=== PATIENT | male | born 1960 | race African-American/Black ===

== ENCOUNTER 2016-03-18 15:08 | Emergency (ER) | payer MEDICARE, MEDICAID ==
[~2016-03-18] VITALS: Ht 182.9 cm; Wt 81.8 kg
[~2016-03-18 15:08] MED LIST: AMLO-512 PO; FLUO-191 PO; FLUO20CA30 PO; LISI-662 PO; LITH300C3 PO; METF500T4 PO; MODA100 PO; OMEP20 PO; QUET200T PO; QUET200T29 PO
[2016-03-18] MEDS ORDERED: DiphenhydrAMINE HCL 50 MG/ML VIAL IVP ONE (16:00)
[2016-03-18] MEDS ORDERED: FAMOTIDINE 10 MG/ML 2 ML VIAL IVP ONE (16:00)
[2016-03-18] MEDS ORDERED: MethylPREDNISolone SOD SUCC 125 MG/2 ML VIAL IVP ONE (16:00)
[2016-03-18 16:24] LABS: BASOPHILS # (AUTO) 0.09 K/uL (0.00-0.20); BASOPHILS % (AUTO) 1.3 % (0.0-2.0); EOSINOPHILS # (AUTO) 0.13 K/uL (0.00-0.70); EOSINOPHILS % (AUTO) 1.87 % (1.0-6.0); HEMATOCRIT 42.4 % (41-53); HEMOGLOBIN 13.6 g/dL (13.5-17.5); LYMPHOCYTES # (AUTO) 2.2 K/uL (1.0-4.8); LYMPHOCYTES % (AUTO) 30.7 % (22.0-44.0); MEAN CORPUSCULAR HEMOGLOBIN 26.9 pg (26.0-34.0); MEAN CORPUSCULAR VOLUME 84 fL (80-100); MONOCYTES # (AUTO) 0.8 K/uL (0.1-1.0); MONOCYTES % (AUTO) 10.8 % (2.0-9.0); NEUTROPHILS # (AUTO) 3.9 K/uL (1.8-7.7); NEUTROPHILS % (AUTO) 55.4 % (40.0-70.0); RED BLOOD CELL COUNT(AUTO) 5.06 MIL/uL (4.50-5.90)
[2016-03-18 16:38] LABS: ANION GAP 8 mmol/L (8-16); CALCIUM, TOTAL 9.1 mg/dL (8.8-10.5); CARBON DIOXIDE 29 mmol/L (22-29); CHLORIDE 102 mmol/L (98-107); CREATININE 1.26 mg/dL (0.60-1.30); GLOMERULAR FILTR. RATE CALC > 60 mL/min (>60); SODIUM SERUM 139 mmol/L (136-145); UREA NITROGEN, BLOOD 16 mg/dL (7-18)
[2016-03-18 16:43] LABS: ALBUMIN 3.4 g/dL (3.4-5.0)
[2016-03-18 16:50] LABS: GLUCOSE,POINT OF CARE 97 MG/DL (70-110)
[2016-03-18 16:59] LABS: ALANINE AMINOTRANSFERASE 16 U/L (12-78); ASPARTATE AMINOTRANSFERASE 14 U/L (15-37); BILIRUBIN,TOTAL 0.1 mg/dL (0.1-1.0); TOTAL PROTEIN, SERUM 7.8 g/dL (6.4-8.2)
[2016-03-18 17:03] LABS: PLATELET COUNT (AUTO) 258 K/uL (150-450)
[2016-03-18 17:20] LABS: LITHIUM < 0.20 mmol/L (0.60-1.20)
[2016-03-18 21:00] VITALS: BP 135/87
== END 2016-03-18 23:25 | disposition home or self-care (01) ==
LOC: EMS 15:15
DX: T78.3XXA Angioneurotic edema, initial encounter (principal); E11.9 Type 2 diabetes mellitus without complications; I10 Essential (primary) hypertension
CPT/HCPCS: 36415; 36430; 80053; 80178; 82962; 85025; 86900; 86901; 86927; 96374; 96375; 99285; J1200; J2930; J3490; P9017

== ENCOUNTER 2016-03-29 14:57 | Emergency (ER) | payer MEDICARE, MEDICAID ==
[~2016-03-29] VITALS: Ht 182.9 cm; Wt 81.5 kg
[2016-03-29 15:51] LABS: GLUCOSE,POINT OF CARE 100 MG/DL (70-110)
[2016-03-29 21:50] VITALS: BP 141/94
== END 2016-03-29 22:41 | disposition home or self-care (01) ==
LOC: EMS 14:59
DX: L02.02 Furuncle of face (principal); E11.9 Type 2 diabetes mellitus without complications; I10 Essential (primary) hypertension
CPT/HCPCS: 82962; 99283

== ENCOUNTER 2016-05-06 21:30 | Inpatient (IN) | payer MEDICARE, MEDICAID ==
[~2016-05-06] VITALS: Ht 182.9 cm; Wt 84.0 kg
[~2016-05-06 21:30] MED LIST changes: -LISI-662 PO
[2016-05-06] MEDS ORDERED: LORazepam 2 MG TABLET PO PRN (22:15)
[2016-05-06] MEDS ORDERED: HALOPERIDOL 5 MG TABLET PO PRN (22:15)
[2016-05-06] MEDS ORDERED: ZOLPIDEM TARTRATE 10 MG TABLET PO PRN (22:15)
[2016-05-06 22:41] VITALS: BP 139/88
[2016-05-06] MEDS ORDERED: DEXTROSE 50%-WATER 25 GM/50 ML SYRINGE IVP PRN (22:45)
[2016-05-07 05:27] LABS: GLUCOSE,POINT OF CARE 86 MG/DL (70-110)
[2016-05-07] MEDS: MetFORMIN HCL 500 MG TABLET PO SCH ×2 (07:04→17:48)
[2016-05-07 07:26] VITALS: BP 149/90
[2016-05-07] MEDS ORDERED: MAG HYDROX/AL HYDROX/SIMETH ES 30 ML SUSPENSION UDCUP PO PRN (08:00)
[2016-05-07] MEDS ORDERED: BENZOCAINE/MENTHOL LOZENGE [8 LOZENGES/PACKET] MM PRN (08:00)
[2016-05-07] MEDS ORDERED: ALBUTEROL SULFATE HFA 90 MCG/PUFF 8 GM INHALER IH PRN (08:00)
[2016-05-07] MEDS ORDERED: CloNIDine HCL 0.1 MG TABLET PO PRN (08:00)
[2016-05-07] MEDS ORDERED: PETROLATUM,WHITE 71 GM JELLY TP PRN (08:00)
[2016-05-07] MEDS ORDERED: MAGNESIUM HYDROXIDE SUSPENSION 30 ML UDCUP PO PRN (08:00)
[2016-05-07] MEDS ORDERED: LOPERAMIDE HCL 2 MG CAPSULE PO PRN (08:00)
[2016-05-07] MEDS ORDERED: IBUPROFEN 600 MG TABLET PO PRN (08:00)
[2016-05-07] MEDS ORDERED: BACITRACIN 28.4 GM OINTMENT TP PRN (08:00)
[2016-05-07] MEDS ORDERED: ACETAMINOPHEN 325 MG TABLET PO PRN (08:00)
[2016-05-07 08:45] VITALS: BP 143/90
[2016-05-07] MEDS: AmLODIPine BESYLATE 10 MG TABLET PO SCH (09:01)
[2016-05-07] MEDS: OMEPRAZOLE 20 MG CAPSULE PO SCH (09:01)
[2016-05-07] MEDS: ASPIRIN 81 MG EC TABLET PO SCH (09:01)
[2016-05-07] MEDS: LISINOPRIL 20 MG TABLET PO SCH ×2 (09:01→16:35)
[2016-05-07 16:47] LABS: GLUCOSE,POINT OF CARE 95 MG/DL (70-110)
[2016-05-07 19:02] VITALS: BP 126/71
[2016-05-08 05:27] LABS: GLUCOSE,POINT OF CARE 82 MG/DL (70-110)
[2016-05-08] MEDS: MetFORMIN HCL 500 MG TABLET PO SCH ×2 (07:34→16:53)
[2016-05-08 08:00] VITALS: BP 167/91
[2016-05-08] MEDS: AmLODIPine BESYLATE 10 MG TABLET PO SCH (08:34)
[2016-05-08] MEDS: LISINOPRIL 20 MG TABLET PO SCH ×2 (08:34→16:53)
[2016-05-08] MEDS: ASPIRIN 81 MG EC TABLET PO SCH (08:34)
[2016-05-08] MEDS: OMEPRAZOLE 20 MG CAPSULE PO SCH (08:34)
[2016-05-08 16:15] VITALS: BP 144/72
[2016-05-09 05:32] LABS: GLUCOSE,POINT OF CARE 99 MG/DL (70-110)
[2016-05-09] MEDS: MetFORMIN HCL 500 MG TABLET PO SCH ×2 (06:32→16:56)
[2016-05-09 08:00] VITALS: BP 152/88
[2016-05-09] MEDS: LISINOPRIL 20 MG TABLET PO SCH ×2 (08:46→16:56)
[2016-05-09] MEDS: ASPIRIN 81 MG EC TABLET PO SCH (08:46)
[2016-05-09] MEDS: OMEPRAZOLE 20 MG CAPSULE PO SCH (08:46)
[2016-05-09] MEDS: AmLODIPine BESYLATE 10 MG TABLET PO SCH (08:46)
[2016-05-09] MEDS ORDERED: GuaiFENesin/D-METHORPHAN [SUGAR-FREE] 200-20MG/10 ML SYRUP UDCUP PO PRN (10:15)
[2016-05-09] MEDS ORDERED: QUEtiapine FUMARATE 100 MG TABLET PO PRN (10:15)
[2016-05-09] MEDS ORDERED: HydrOXYzine PAMOATE 50 MG CAPSULE PO PRN (10:15)
[2016-05-09] MEDS ORDERED: LOPERAMIDE HCL 2 MG CAPSULE PO PRN (10:15)
[2016-05-09 16:53] VITALS: BP 148/79
[2016-05-09] MEDS: THIAMINE HCL 100 MG TABLET PO SCH (16:56)
[2016-05-09] MEDS ORDERED: GABAPENTIN 300 MG CAPSULE PO PRN (17:15)
[2016-05-09] MEDS: LITHIUM CARBONATE 300 MG CAPSULE PO SCH (22:08)
[2016-05-09] MEDS: QUEtiapine FUMARATE 200 MG TABLET PO SCH (22:08)
[2016-05-10 06:12] LABS: GLUCOSE,POINT OF CARE 80 MG/DL (70-110)
[2016-05-10] MEDS: MetFORMIN HCL 500 MG TABLET PO SCH ×2 (06:52→17:31)
[2016-05-10] MEDS: THIAMINE HCL 100 MG TABLET PO SCH ×2 (08:16→17:31)
[2016-05-10] MEDS: LISINOPRIL 20 MG TABLET PO SCH ×2 (08:16→17:31)
[2016-05-10] MEDS: FOLIC ACID 1 MG TABLET PO SCH (08:16)
[2016-05-10] MEDS: OMEPRAZOLE 20 MG CAPSULE PO SCH (08:16)
[2016-05-10] MEDS: AmLODIPine BESYLATE 10 MG TABLET PO SCH (08:17)
[2016-05-10] MEDS: MULTIVITAMINS WITH MINERALS, THERAPEUTIC TABLET PO SCH (08:17)
[2016-05-10] MEDS: ASPIRIN 81 MG EC TABLET PO SCH (08:17)
[2016-05-10] MEDS: FLUoxetine HCL 20 MG CAPSULE PO SCH (08:17)
[2016-05-10 09:05] VITALS: BP 109/60
[2016-05-10 16:47] VITALS: BP 119/65
[2016-05-10 22:04] VITALS: BP 124/69
[2016-05-10] MEDS: LITHIUM CARBONATE 300 MG CAPSULE PO SCH (22:19)
[2016-05-10] MEDS: QUEtiapine FUMARATE 200 MG TABLET PO SCH (22:19)
[2016-05-10] MEDS: PRAZOSIN HCL 1 MG CAPSULE PO SCH (22:19)
[2016-05-11 05:26] LABS: GLUCOSE,POINT OF CARE 114 MG/DL (70-110)
[2016-05-11] MEDS: MetFORMIN HCL 500 MG TABLET PO SCH ×2 (07:01→17:30)
[2016-05-11 08:30] VITALS: BP 142/76
[2016-05-11] MEDS: FOLIC ACID 1 MG TABLET PO SCH (09:16)
[2016-05-11] MEDS: ASPIRIN 81 MG EC TABLET PO SCH (09:16)
[2016-05-11] MEDS: LISINOPRIL 20 MG TABLET PO SCH ×2 (09:16→17:30)
[2016-05-11] MEDS: AmLODIPine BESYLATE 10 MG TABLET PO SCH (09:16)
[2016-05-11] MEDS: FLUoxetine HCL 20 MG CAPSULE PO SCH (09:16)
[2016-05-11] MEDS: THIAMINE HCL 100 MG TABLET PO SCH ×2 (09:16→17:30)
[2016-05-11] MEDS: OMEPRAZOLE 20 MG CAPSULE PO SCH (09:16)
[2016-05-11] MEDS: MULTIVITAMINS WITH MINERALS, THERAPEUTIC TABLET PO SCH (09:16)
[2016-05-11 17:42] LABS: GLUCOSE,POINT OF CARE 88 MG/DL (70-110)
[2016-05-11 18:02] VITALS: BP 140/83
[2016-05-11] MEDS: QUEtiapine FUMARATE 200 MG TABLET PO SCH (21:15)
[2016-05-11] MEDS: PRAZOSIN HCL 1 MG CAPSULE PO SCH (21:15)
[2016-05-11] MEDS: LITHIUM CARBONATE 300 MG CAPSULE PO SCH (21:15)
[2016-05-12 05:07] LABS: GLUCOSE,POINT OF CARE 84 MG/DL (70-110)
[2016-05-12] MEDS: MetFORMIN HCL 500 MG TABLET PO SCH ×2 (06:34→16:53)
[2016-05-12] MEDS: NALTREXONE HCL 50 MG TABLET PO SCH (08:00)
[2016-05-12] MEDS: MULTIVITAMINS WITH MINERALS, THERAPEUTIC TABLET PO SCH (08:00)
[2016-05-12] MEDS: FLUoxetine HCL 20 MG CAPSULE PO SCH (08:00)
[2016-05-12] MEDS: THIAMINE HCL 100 MG TABLET PO SCH ×2 (08:01→16:14)
[2016-05-12] MEDS: FOLIC ACID 1 MG TABLET PO SCH (08:01)
[2016-05-12] MEDS: AmLODIPine BESYLATE 10 MG TABLET PO SCH (08:01)
[2016-05-12] MEDS: LISINOPRIL 20 MG TABLET PO SCH ×2 (08:01→16:14)
[2016-05-12] MEDS: ASPIRIN 81 MG EC TABLET PO SCH (08:01)
[2016-05-12] MEDS: OMEPRAZOLE 20 MG CAPSULE PO SCH (08:01)
[2016-05-12 08:13] VITALS: BP 129/68
[2016-05-12 16:46] VITALS: BP 136/77
[2016-05-12] MEDS ORDERED: DICLOFENAC SODIUM 1% 100 GM GEL [2GM] TP PRN (18:15)
[2016-05-12] MEDS ORDERED: IBUPROFEN 400 MG TABLET PO PRN (18:15)
[2016-05-12] MEDS: QUEtiapine FUMARATE 200 MG TABLET PO SCH (21:28)
[2016-05-12] MEDS: LITHIUM CARBONATE 300 MG CAPSULE PO SCH (21:28)
[2016-05-12] MEDS: PRAZOSIN HCL 1 MG CAPSULE PO SCH (21:28)
[2016-05-13 05:38] LABS: GLUCOSE,POINT OF CARE 104 MG/DL (70-110)
[2016-05-13 08:10] VITALS: BP 139/83
[2016-05-13] MEDS ORDERED: MODAFINIL 100 MG TABLET PO SCH (09:00)
[2016-05-13] MEDS: MetFORMIN HCL 500 MG TABLET PO SCH ×2 (09:37→16:07)
[2016-05-13] MEDS: MULTIVITAMINS WITH MINERALS, THERAPEUTIC TABLET PO SCH (09:59)
[2016-05-13] MEDS: AmLODIPine BESYLATE 10 MG TABLET PO SCH (09:59)
[2016-05-13] MEDS: OMEPRAZOLE 20 MG CAPSULE PO SCH (09:59)
[2016-05-13] MEDS: FOLIC ACID 1 MG TABLET PO SCH (10:00)
[2016-05-13] MEDS: LISINOPRIL 20 MG TABLET PO SCH ×2 (10:00→16:07)
[2016-05-13] MEDS: ASPIRIN 81 MG EC TABLET PO SCH (10:00)
[2016-05-13] MEDS: THIAMINE HCL 100 MG TABLET PO SCH ×2 (10:01→16:08)
[2016-05-13] MEDS: NALTREXONE HCL 50 MG TABLET PO SCH (10:01)
[2016-05-13] MEDS: FLUoxetine HCL 20 MG CAPSULE PO SCH (10:01)
[2016-05-13 16:47] LABS: GLUCOSE,POINT OF CARE 111 MG/DL (70-110)
[2016-05-13 17:09] VITALS: BP 129/74
[2016-05-13] MEDS: QUEtiapine FUMARATE 200 MG TABLET PO SCH (21:22)
[2016-05-13] MEDS: LITHIUM CARBONATE 300 MG CAPSULE PO SCH (21:22)
[2016-05-13] MEDS: PRAZOSIN HCL 1 MG CAPSULE PO SCH (21:22)
[2016-05-14 05:42] LABS: GLUCOSE,POINT OF CARE 80 MG/DL (70-110)
[2016-05-14] MEDS: MetFORMIN HCL 500 MG TABLET PO SCH ×2 (06:59→17:21)
[2016-05-14] MEDS: INSULIN ASPART 100 UNITS/ML SQ PRN (07:00)
[2016-05-14 08:00] VITALS: BP 149/87
[2016-05-14] MEDS: OMEPRAZOLE 20 MG CAPSULE PO SCH (08:44)
[2016-05-14] MEDS: AmLODIPine BESYLATE 10 MG TABLET PO SCH (08:44)
[2016-05-14] MEDS: ASPIRIN 81 MG EC TABLET PO SCH (08:44)
[2016-05-14] MEDS: FOLIC ACID 1 MG TABLET PO SCH (08:44)
[2016-05-14] MEDS: MULTIVITAMINS WITH MINERALS, THERAPEUTIC TABLET PO SCH (08:45)
[2016-05-14] MEDS: LISINOPRIL 20 MG TABLET PO SCH ×2 (08:45→17:21)
[2016-05-14] MEDS: THIAMINE HCL 100 MG TABLET PO SCH ×2 (08:45→17:21)
[2016-05-14] MEDS: NALTREXONE HCL 50 MG TABLET PO SCH (08:45)
[2016-05-14] MEDS: FLUoxetine HCL 20 MG CAPSULE PO SCH (08:45)
[2016-05-14] MEDS: MODAFINIL 100 MG TABLET PO SCH (08:45)
[2016-05-14 18:06] VITALS: BP 145/87
[2016-05-14] MEDS: LITHIUM CARBONATE 300 MG CAPSULE PO SCH (20:32)
[2016-05-14] MEDS: QUEtiapine FUMARATE 200 MG TABLET PO SCH (20:32)
[2016-05-14] MEDS: PRAZOSIN HCL 1 MG CAPSULE PO SCH (20:32)
[2016-05-15 05:12] LABS: GLUCOSE,POINT OF CARE 79 MG/DL (70-110)
[2016-05-15] MEDS: MetFORMIN HCL 500 MG TABLET PO SCH ×2 (06:37→17:08)
[2016-05-15 08:01] VITALS: BP 155/81
[2016-05-15] MEDS: MODAFINIL 100 MG TABLET PO SCH (08:14)
[2016-05-15] MEDS: ASPIRIN 81 MG EC TABLET PO SCH (08:14)
[2016-05-15] MEDS: AmLODIPine BESYLATE 10 MG TABLET PO SCH (08:14)
[2016-05-15] MEDS: OMEPRAZOLE 20 MG CAPSULE PO SCH (08:14)
[2016-05-15] MEDS: FOLIC ACID 1 MG TABLET PO SCH (08:14)
[2016-05-15] MEDS: NALTREXONE HCL 50 MG TABLET PO SCH (08:15)
[2016-05-15] MEDS: LISINOPRIL 20 MG TABLET PO SCH ×2 (08:15→17:08)
[2016-05-15] MEDS: FLUoxetine HCL 20 MG CAPSULE PO SCH (08:15)
[2016-05-15] MEDS: MULTIVITAMINS WITH MINERALS, THERAPEUTIC TABLET PO SCH (08:15)
[2016-05-15] MEDS: THIAMINE HCL 100 MG TABLET PO SCH ×2 (08:15→17:08)
[2016-05-15 17:00] VITALS: BP 145/84
[2016-05-15] MEDS: INSULIN ASPART 100 UNITS/ML SQ PRN (21:24)
[2016-05-15] MEDS: LITHIUM CARBONATE 300 MG CAPSULE PO SCH (21:51)
[2016-05-15] MEDS: QUEtiapine FUMARATE 200 MG TABLET PO SCH (21:51)
[2016-05-15] MEDS: PRAZOSIN HCL 1 MG CAPSULE PO SCH (21:51)
[2016-05-16 05:22] LABS: GLUCOSE,POINT OF CARE 79 MG/DL (70-110)
[2016-05-16] MEDS: MetFORMIN HCL 500 MG TABLET PO SCH ×2 (06:34→17:36)
[2016-05-16 08:02] VITALS: BP 139/91
[2016-05-16] MEDS: MULTIVITAMINS WITH MINERALS, THERAPEUTIC TABLET PO SCH (09:25)
[2016-05-16] MEDS: AmLODIPine BESYLATE 10 MG TABLET PO SCH (09:25)
[2016-05-16] MEDS: MODAFINIL 100 MG TABLET PO SCH (09:25)
[2016-05-16] MEDS: FLUoxetine HCL 20 MG CAPSULE PO SCH (09:26)
[2016-05-16] MEDS: FOLIC ACID 1 MG TABLET PO SCH (09:26)
[2016-05-16] MEDS: LISINOPRIL 20 MG TABLET PO SCH ×2 (09:26→16:09)
[2016-05-16] MEDS: PRAZOSIN HCL 1 MG CAPSULE PO SCH (09:27)
[2016-05-16] MEDS: ASPIRIN 81 MG EC TABLET PO SCH (09:27)
[2016-05-16] MEDS: THIAMINE HCL 100 MG TABLET PO SCH ×2 (09:27→16:09)
[2016-05-16] MEDS: OMEPRAZOLE 20 MG CAPSULE PO SCH (09:29)
[2016-05-16] MEDS: NALTREXONE HCL 50 MG TABLET PO SCH (09:30)
[2016-05-16 16:41] VITALS: BP 151/89
[2016-05-16] MEDS: QUEtiapine FUMARATE 200 MG TABLET PO SCH (21:42)
[2016-05-16] MEDS: LITHIUM CARBONATE 300 MG CAPSULE PO SCH (21:42)
[2016-05-17] MEDS: MetFORMIN HCL 500 MG TABLET PO SCH ×2 (06:32→16:30)
[2016-05-17 08:30] VITALS: BP 144/87
[2016-05-17] MEDS: AmLODIPine BESYLATE 10 MG TABLET PO SCH (09:22)
[2016-05-17] MEDS: OMEPRAZOLE 20 MG CAPSULE PO SCH (09:22)
[2016-05-17] MEDS: ASPIRIN 81 MG EC TABLET PO SCH (09:22)
[2016-05-17] MEDS: FOLIC ACID 1 MG TABLET PO SCH (09:22)
[2016-05-17] MEDS: NALTREXONE HCL 50 MG TABLET PO SCH (09:27)
[2016-05-17] MEDS: FLUoxetine HCL 20 MG CAPSULE PO SCH (09:27)
[2016-05-17] MEDS: THIAMINE HCL 100 MG TABLET PO SCH ×2 (09:28→16:30)
[2016-05-17] MEDS: MULTIVITAMINS WITH MINERALS, THERAPEUTIC TABLET PO SCH (09:28)
[2016-05-17] MEDS: LISINOPRIL 20 MG TABLET PO SCH ×2 (09:28→16:30)
[2016-05-17] MEDS: MODAFINIL 100 MG TABLET PO SCH (09:29)
[2016-05-17] MEDS: ONDANSETRON HCL 4 MG TABLET PO PRN ×2 (11:59→19:20)
[2016-05-17 16:30] VITALS: BP 143/84
[2016-05-17] MEDS: PRAZOSIN HCL 1 MG CAPSULE PO SCH (21:46)
[2016-05-17] MEDS: QUEtiapine FUMARATE 300 MG TABLET PO SCH (21:46)
[2016-05-17] MEDS: LITHIUM CARBONATE 300 MG CAPSULE PO SCH (21:46)
[2016-05-18 05:37] LABS: GLUCOSE,POINT OF CARE 101 MG/DL (70-110)
[2016-05-18] MEDS: MetFORMIN HCL 500 MG TABLET PO SCH ×2 (06:31→16:39)
[2016-05-18 08:01] VITALS: BP 146/76
[2016-05-18] MEDS: OMEPRAZOLE 20 MG CAPSULE PO SCH (08:53)
[2016-05-18] MEDS: FOLIC ACID 1 MG TABLET PO SCH (08:53)
[2016-05-18] MEDS: MODAFINIL 100 MG TABLET PO SCH (08:53)
[2016-05-18] MEDS: ASPIRIN 81 MG EC TABLET PO SCH (08:53)
[2016-05-18] MEDS: AmLODIPine BESYLATE 10 MG TABLET PO SCH (08:53)
[2016-05-18] MEDS: NALTREXONE HCL 50 MG TABLET PO SCH (08:54)
[2016-05-18] MEDS: MULTIVITAMINS WITH MINERALS, THERAPEUTIC TABLET PO SCH (08:54)
[2016-05-18] MEDS: THIAMINE HCL 100 MG TABLET PO SCH ×2 (08:54→16:39)
[2016-05-18] MEDS: LISINOPRIL 20 MG TABLET PO SCH ×2 (08:54→16:39)
[2016-05-18] MEDS: FLUoxetine HCL 20 MG CAPSULE PO SCH (08:54)
[2016-05-18 17:00] VITALS: BP 152/94
[2016-05-18] MEDS: PRAZOSIN HCL 1 MG CAPSULE PO SCH (22:00)
[2016-05-18] MEDS: LITHIUM CARBONATE 300 MG CAPSULE PO SCH (22:00)
[2016-05-18] MEDS: QUEtiapine FUMARATE 300 MG TABLET PO SCH (22:00)
[2016-05-18] MEDS: ONDANSETRON HCL 4 MG TABLET PO PRN (22:00)
[2016-05-19 05:32] LABS: GLUCOSE,POINT OF CARE 73 MG/DL (70-110)
[2016-05-19] MEDS: MetFORMIN HCL 500 MG TABLET PO SCH ×2 (07:01→18:32)
[2016-05-19 08:00] VITALS: BP 156/83
[2016-05-19] MEDS: NALTREXONE HCL 50 MG TABLET PO SCH (08:11)
[2016-05-19] MEDS: OMEPRAZOLE 20 MG CAPSULE PO SCH (08:11)
[2016-05-19] MEDS: THIAMINE HCL 100 MG TABLET PO SCH (08:11)
[2016-05-19] MEDS: LISINOPRIL 20 MG TABLET PO SCH ×2 (08:11→18:03)
[2016-05-19] MEDS: MULTIVITAMINS WITH MINERALS, THERAPEUTIC TABLET PO SCH (08:11)
[2016-05-19] MEDS: FLUoxetine HCL 20 MG CAPSULE PO SCH (08:11)
[2016-05-19] MEDS: MODAFINIL 100 MG TABLET PO SCH (08:11)
[2016-05-19] MEDS: ASPIRIN 81 MG EC TABLET PO SCH (08:12)
[2016-05-19] MEDS: AmLODIPine BESYLATE 10 MG TABLET PO SCH (08:12)
[2016-05-19] MEDS: FOLIC ACID 1 MG TABLET PO SCH (08:12)
[2016-05-19 16:34] VITALS: BP 157/86
[2016-05-19] MEDS ORDERED: MODA100 PO (16:56)
[2016-05-19] MEDS ORDERED: QUET300T18 PO (16:56)
[2016-05-19] MEDS ORDERED: FLUO-191 PO (16:56)
[2016-05-19] MEDS ORDERED: LITH300C3 PO (16:56)
[2016-05-19] MEDS ORDERED: NALT50 PO (16:56)
[2016-05-19] MEDS ORDERED: PRAZ1 PO (16:56)
[2016-05-19] MEDS: ONDANSETRON HCL 4 MG TABLET PO PRN (17:22)
[2016-05-19] MEDS: PRAZOSIN HCL 1 MG CAPSULE PO SCH (21:39)
[2016-05-19] MEDS: QUEtiapine FUMARATE 300 MG TABLET PO SCH (21:39)
[2016-05-19] MEDS: LITHIUM CARBONATE 300 MG CAPSULE PO SCH (21:39)
[2016-05-19 21:44] VITALS: BP 142/82
[2016-05-20 05:42] LABS: GLUCOSE,POINT OF CARE 77 MG/DL (70-110)
[2016-05-20] MEDS: MetFORMIN HCL 500 MG TABLET PO SCH (06:47)
[2016-05-20 09:00] VITALS: BP 160/80
[2016-05-20] MEDS ORDERED: ASPI81 PO (09:41)
[2016-05-20] MEDS ORDERED: LISI-662 PO (09:43)
[2016-05-20] MEDS ORDERED: MV-M1TAB2 PO (09:44)
[2016-05-20] MEDS: MODAFINIL 100 MG TABLET PO SCH (09:44)
[2016-05-20] MEDS: LISINOPRIL 20 MG TABLET PO SCH (09:45)
[2016-05-20] MEDS: OMEPRAZOLE 20 MG CAPSULE PO SCH (09:45)
[2016-05-20] MEDS: AmLODIPine BESYLATE 10 MG TABLET PO SCH (09:45)
[2016-05-20] MEDS: FLUoxetine HCL 20 MG CAPSULE PO SCH (09:46)
[2016-05-20] MEDS: ASPIRIN 81 MG EC TABLET PO SCH (09:46)
[2016-05-20] MEDS: NALTREXONE HCL 50 MG TABLET PO SCH (09:47)
[2016-05-20] MEDS: MULTIVITAMINS WITH MINERALS, THERAPEUTIC TABLET PO SCH (09:49)
[2016-05-20] MEDS: ONDANSETRON HCL 4 MG TABLET PO PRN (10:20)
== END 2016-05-20 12:00 | disposition home or self-care (01) | DRG 885 ==
LOC: 3EX 21:30
PROVIDERS: ADMIT Psychiatry & Neurology Psychiatry; ATTEND Psychiatry & Neurology Psychiatry
DX: F25.1 Schizoaffective disorder, depressive type (principal); I10 Essential (primary) hypertension; I25.10 Atherosclerotic heart disease of native coronary artery without angina pectoris; K21.9 Gastro-esophageal reflux disease without esophagitis; K59.00 Constipation, unspecified; M19.90 Unspecified osteoarthritis, unspecified site; G47.00 Insomnia, unspecified; F22 Delusional disorders; E11.40 Type 2 diabetes mellitus with diabetic neuropathy, unspecified; R26.9 Unspecified abnormalities of gait and mobility; M54.5 Low back pain; M79.641 Pain in right hand; Z79.4 Long term (current) use of insulin; Z79.82 Long term (current) use of aspirin
CPT/HCPCS: 82962; 87081; Q0162

== ENCOUNTER 2016-09-16 12:00 | Emergency (ER) | payer MEDICARE, MEDICAID ==
[~2016-09-16] VITALS: Ht 182.9 cm; Wt 86.3 kg
[~2016-09-16 12:00] MED LIST changes: +ASPI81 PO; -FLUO20CA30 PO; +LISI-662 PO; +MV-M1TAB2 PO; +NALT50 PO; +PRAZ1 PO; -QUET200T PO; -QUET200T29 PO; +QUET300T18 PO
[2016-09-16] MEDS ORDERED: GABA-531 PO (12:10)
[2016-09-16 12:13] LABS: GLUCOSE,POINT OF CARE 117 MG/DL (70-110)
[2016-09-16 13:34] LABS: BASOPHILS % (AUTO) 0.5 % (0.0-2.0); EOSINOPHILS % (AUTO) 2.2 % (1.0-6.0); HEMATOCRIT 42.5 % (41-53); LYMPHOCYTES # (AUTO) 1.7 K/uL (1.0-4.8); LYMPHOCYTES % (AUTO) 29.5 % (22.0-44.0); MEAN CORPUSCULAR HEMOGLOBIN 28.1 pg (26.0-34.0); MEAN CORPUSCULAR VOLUME 85 fL (80-100); MONOCYTES # (AUTO) 0.6 K/uL (0.1-1.0); MONOCYTES % (AUTO) 10.4 % (2.0-9.0); NEUTROPHILS # (AUTO) 3.4 K/uL (1.8-7.7); NEUTROPHILS % (AUTO) 57.4 % (40.0-70.0); PLATELET COUNT (AUTO) 128 K/uL (150-450); RED BLOOD CELL COUNT(AUTO) 4.99 MIL/uL (4.50-5.90); RED CELL DISTRIBUTION WIDTH 15.6 % (11.5-14.5); WHITE BLOOD COUNT (AUTO) 5.9 K/uL (4.5-11.0)
[2016-09-16] MEDS ORDERED: AmLODIPine BESYLATE 5 MG TABLET PO ONE (13:45)
[2016-09-16 13:54] LABS: ANION GAP 12 mmol/L (8-16); CALCIUM, TOTAL 9.9 mg/dL (8.8-10.5); CARBON DIOXIDE 26 mmol/L (22-29); CHLORIDE 105 mmol/L (98-107); CREATININE 1.05 mg/dL (0.60-1.30); GLOMERULAR FILTR. RATE CALC > 60 mL/min (>60); SODIUM SERUM 143 mmol/L (136-145); UREA NITROGEN, BLOOD 17 mg/dL (7-18)
[2016-09-16] MEDS ORDERED: ACETAMINOPHEN 500 MG TABLET ONE (13:55)
[2016-09-16 13:59] LABS: ALANINE AMINOTRANSFERASE 14 U/L (12-78); ALBUMIN 3.6 g/dL (3.4-5.0); ASPARTATE AMINOTRANSFERASE 16 U/L (15-37); BILIRUBIN,TOTAL 0.4 mg/dL (0.1-1.0); TOTAL PROTEIN, SERUM 7.7 g/dL (6.4-8.2)
[2016-09-16] MEDS ORDERED: ACETAMINOPHEN 500 MG TABLET PO ONE (14:00)
[2016-09-16 14:34] LABS: LITHIUM < 0.20 mmol/L (0.60-1.20)
[2016-09-16] MEDS ORDERED: CloNIDine HCL 0.1 MG TABLET PO ONE (16:00)
[2016-09-16 17:17] VITALS: BP 200/107
== END 2016-09-16 18:06 | disposition home or self-care (01) ==
LOC: EMS 12:03
DX: I10 Essential (primary) hypertension (principal); F32.9 Major depressive disorder, single episode, unspecified; E11.9 Type 2 diabetes mellitus without complications
CPT/HCPCS: 36415; 80053; 80178; 80307; 82962; 85025; 99284; G0480

== ENCOUNTER → 2016-12-19 | Outpatient (CLI) | payer MEDICARE, MEDICAID ==
[~2016-12-19] MED LIST changes: +GABA-531 PO; -NALT50 PO; +NALT50TA6 PO
[2016-12-19 15:30] LABS: BASOPHILS % (AUTO) 1.2 % (0.0-2.0); EOSINOPHILS % (AUTO) 3.6 % (1.0-6.0); HEMATOCRIT 41.2 % (41-53); HEMOGLOBIN 13.5 g/dL (13.5-17.5); LYMPHOCYTES # (AUTO) 2.4 K/uL (1.0-4.8); LYMPHOCYTES % (AUTO) 32.4 % (22.0-44.0); MEAN CORPUSCULAR HEMOGLOBIN 28.1 pg (26.0-34.0); MEAN CORPUSCULAR HGB CONC 32.8 G/dL (31.0-37.0); MEAN CORPUSCULAR VOLUME 86 fL (80-100); MONOCYTES # (AUTO) 0.7 K/uL (0.1-1.0); MONOCYTES % (AUTO) 8.7 % (2.0-9.0); NEUTROPHILS # (AUTO) 4.1 K/uL (1.8-7.7); NEUTROPHILS % (AUTO) 54.1 % (40.0-70.0); RED BLOOD CELL COUNT(AUTO) 4.81 MIL/uL (4.50-5.90)
[2016-12-19 15:49] LABS: % IRON SATURATION 27.5 % (30-44); IRON, SERUM 90 mcg/dL (50-175); PROSTATE SPECIFIC ANTIGEN 2.71 ng/mL (0.00-4.00); TOTAL IRON BINDING CAPACITY 327 mcg/dL (250-450)
[2016-12-19 15:56] LABS: ALANINE AMINOTRANSFERASE 16 U/L (12-78); ALBUMIN 4.1 g/dL (3.4-5.0); ALKALINE PHOSPHATASE 69 U/L (46-116); ANION GAP 10 mmol/L (8-16); ASPARTATE AMINOTRANSFERASE 17 U/L (15-37); BILIRUBIN,TOTAL 0.3 mg/dL (0.1-1.0); C-REACTIVE PROTEIN QUANT 0.14 mg/dL (0.00-0.30); CALCIUM, TOTAL 9.3 mg/dL (8.8-10.5); CARBON DIOXIDE 27 mmol/L (22-29); CHLORIDE 102 mmol/L (98-107); CHOLESTEROL 184 mg/dL (131-200); FREE T4 (FREE THYROXINE) 0.84 ng/dL (0.76-1.46); GLOMERULAR FILTR. RATE CALC > 60 mL/min (>60); GLUCOSE,RANDOM 96 mg/dL (70-110); POTASSIUM 3.4 mmol/L (3.5-5.1); SODIUM SERUM 139 mmol/L (136-145); THYROID STIMULATING HORMONE 1.27 uIU/mL (0.36-3.74); TRIGLYCERIDES 33 mg/dL (15-150); UREA NITROGEN, BLOOD 21 mg/dL (7-18)
[2016-12-19 16:08] LABS: PLATELET COUNT (AUTO) 206 K/uL (150-450)
[2016-12-19 16:09] LABS: PLATELET MORPHOLOGY COMMENT LARGE PLTS PRESENT
[2016-12-19 16:13] LABS: LITHIUM < 0.20 mmol/L (0.60-1.20)
[2016-12-19 16:39] LABS: CHOL/HDL RATIO 2.4 (4.2-7.3); HDL CHOLESTEROL 78 mg/dL (40-60); LDL CHOL (CALC.) 99 mg/dL (0-130)
[2016-12-19 17:05] LABS: ERYTHROCYTE SEDIMENTATION RATE 7 MM/HR (0-15)
[2016-12-20 10:21] LABS: FOLATE SERUM 12.4 ng/mL (5.4-)
== END | disposition home or self-care (01) ==
LOC: LABPV 13:23
PROVIDERS: ATTEND Family Medicine
DX: E11.9 Type 2 diabetes mellitus without complications (principal); E55.9 Vitamin D deficiency, unspecified; R35.1 Nocturia; R35.0 Frequency of micturition
CPT/HCPCS: 82306; 82607; 82746; 83036; 83540; 83550; 84153; 84439; 84443; 85651; 86140; 86430

== ENCOUNTER 2018-05-15 18:37 | Emergency (ER) | payer MEDICARE, MEDICAID ==
[~2018-05-15] VITALS: Ht 188 cm; Wt 86.4 kg
[~2018-05-15 18:37] MED LIST changes: +METF-960 PO; -METF500T4 PO
[2018-05-15 19:06] LABS: GLUCOSE,POINT OF CARE 92 MG/DL (70-110)
[2018-05-15] MEDS ORDERED: FAMOTIDINE 20 MG TABLET PO ONE (20:45)
[2018-05-15] MEDS ORDERED: DiphenhydrAMINE HCL 25 MG CAPSULE PO ONE (20:45)
[2018-05-15] MEDS ORDERED: DEXAMETHASONE 4 MG TABLET PO ONE (20:45)
[2018-05-15] MEDS ORDERED: ACETAMINOPHEN 500 MG TABLET PO ONE (20:45)
[2018-05-16 04:00] VITALS: BP 144/63
== END 2018-05-16 05:20 | disposition home or self-care (01) ==
LOC: EMS 18:40
DX: T78.3XXA Angioneurotic edema, initial encounter (principal); S63.617A Unspecified sprain of left little finger, initial encounter; E11.9 Type 2 diabetes mellitus without complications; I10 Essential (primary) hypertension; F31.9 Bipolar disorder, unspecified; Z79.899 Other long term (current) drug therapy; Z79.84 Long term (current) use of oral hypoglycemic drugs; Z79.82 Long term (current) use of aspirin; X58.XXXA Exposure to other specified factors, initial encounter; Y93.89 Activity, other specified; Y92.89 Other specified places as the place of occurrence of the external cause; Y99.8 Other external cause status
CPT/HCPCS: 29130; 73130; 82962; 99284; J8540

== ENCOUNTER 2018-06-22 14:59 | Emergency (ER) | payer MEDICARE, MEDICAID ==
[~2018-06-22] VITALS: Ht 182.9 cm; Wt 81.8 kg
[2018-06-22 15:29] VITALS: BP 159/97
[2018-06-22] MEDS ORDERED: KETOROLAC TROMETHAMINE 10 MG TABLET PO ONE (17:00)
== END 2018-06-22 18:13 | disposition home or self-care (01) ==
LOC: EMS 15:02
DX: S63.617A Unspecified sprain of left little finger, initial encounter (principal); M70.21 Olecranon bursitis, right elbow; I10 Essential (primary) hypertension; E11.9 Type 2 diabetes mellitus without complications; Z88.8 Allergy status to other drugs, medicaments and biological substances; Z79.899 Other long term (current) drug therapy; Z79.82 Long term (current) use of aspirin; Y93.89 Activity, other specified; W18.39XA Other fall on same level, initial encounter; Y92.89 Other specified places as the place of occurrence of the external cause; Y99.8 Other external cause status

== ENCOUNTER → 2024-11-16 | Emergency (ER) | payer MEDICARE, MEDICAID ==
[~2024-11-16] VITALS: Ht 180.3 cm; Wt 81.8 kg
[~2024-11-16] MED LIST changes: +AMLO-258 PO; -AMLO-512 PO; +ASPI-1450 PO; -ASPI81 PO; +ATOR40TA71 PO; +FLUO-177 PO; -FLUO-191 PO; +GABA-1181 PO; -GABA-531 PO; +HYDR50TA36 PO; -LISI-662 PO; +METF-1211 PO; -METF-960 PO; -MODA100 PO; +MODA100T65 PO; +NALT50TA33 PO; -NALT50TA6 PO; +OMEP-148 PO; -OMEP20 PO; -QUET300T18 PO; +QUET300T19 PO
[2024-11-16 16:13] VITALS: BP 136/78; PULSE 76; RESP 18; TEMP 98.1; O2SAT 98
== END | disposition still patient (30) ==
LOC: EMS 16:02
DX: Z76.0 Encounter for issue of repeat prescription (principal); E11.9 Type 2 diabetes mellitus without complications; F31.9 Bipolar disorder, unspecified; I10 Essential (primary) hypertension; Z98.890 Other specified postprocedural states; Z79.82 Long term (current) use of aspirin; Z79.899 Other long term (current) drug therapy; Z88.8 Allergy status to other drugs, medicaments and biological substances
CPT/HCPCS: 99282; Z7502

== ENCOUNTER 2025-01-06 12:55 | Inpatient (IN) | payer MEDICARE, MEDICAID ==
[~2025-01-06] VITALS: Ht 182.9 cm; Wt 76.9 kg
[~2025-01-06 12:55] MED LIST changes: +CLOP75TA83 PO; +ISOS30TA92 PO; +LOSA-417 PO; -NALT50TA33 PO; +SPIR-37 PO
[2025-01-06 14:45] LABS: PLATELET COUNT (AUTO) 259 K/uL (150-450); RED BLOOD CELL COUNT(AUTO) 4.15 MIL/uL (4.50-5.90); RED CELL DISTRIBUTION WIDTH 15.7 % (11.5-14.5); WHITE BLOOD COUNT (AUTO) 6.3 K/uL (4.5-11.0)
[2025-01-06 14:49] LABS: CALCIUM, TOTAL 9.0 mg/dL (8.8-10.5); CREATININE 1.42 mg/dL (0.60-1.30); GLOMERULAR FILTR. RATE CALC 60 mL/min (>60); GLUCOSE,RANDOM 88 mg/dL (70-110); SODIUM SERUM 143 mmol/L (136-145); UREA NITROGEN, BLOOD 18 mg/dL (7-18)
[2025-01-06 14:59] LABS: ASPARTATE AMINOTRANSFERASE 14.0 U/L (15-37); TOTAL PROTEIN, SERUM 6.8 g/dL (6.4-8.2)
[2025-01-06 15:00] LABS: TROPONIN I-HIGH SENSITIVITY 14 ng/L (<76)
[2025-01-06] MEDS ORDERED: ONDANSETRON HCL 4 MG/2 ML VIAL IVP PRN (16:15)
[2025-01-06] MEDS ORDERED: ZOLPIDEM TARTRATE 5 MG TABLET PO PRN (16:15)
[2025-01-06] MEDS ORDERED: BISACODYL 10 MG RECTAL RECTAL SUPPOSITORY PR PRN (16:15)
[2025-01-06] MEDS ORDERED: HYDROCODONE/ACETAMINOPHEN 5-325 MG TABLET PO PRN (16:15)
[2025-01-06] MEDS ORDERED: MAGNESIUM HYDROXIDE SUSPENSION 30 ML UDCUP PO PRN (16:15)
[2025-01-06] MEDS: SODIUM CHLORIDE 0.9% 1,000 ML IV ONE (17:20)
[2025-01-06 19:50] VITALS: BP 156/77; PULSE 53; RESP 18; TEMP 98.2; O2SAT 98
[2025-01-06] MEDS: DOCUSATE SODIUM 100 MG CAPSULE PO SCH (21:00)
[2025-01-07] VITALS: BP 152/86; PULSE 50; RESP 19; TEMP 98.4; O2SAT 100
[2025-01-07] MEDS: HEPARIN SODIUM,PORCINE 5,000 UNITS/ML VIAL SQ SCH (01:46)
[2025-01-07 04:00] VITALS: BP 145/72; PULSE 50; RESP 19; TEMP 98.2; O2SAT 99
[2025-01-07 06:14] LABS: PLATELET COUNT (AUTO) 249 K/uL (150-450); RED BLOOD CELL COUNT(AUTO) 3.99 MIL/uL (4.50-5.90); RED CELL DISTRIBUTION WIDTH 15.4 % (11.5-14.5); WHITE BLOOD COUNT (AUTO) 6.1 K/uL (4.5-11.0)
[2025-01-07 06:15] LABS: CALCIUM, TOTAL 9.3 mg/dL (8.8-10.5); CREATININE 1.08 mg/dL (0.60-1.30); GLOMERULAR FILTR. RATE CALC > 60 mL/min (>60); GLUCOSE,RANDOM 85 mg/dL (70-110); SODIUM SERUM 140 mmol/L (136-145); UREA NITROGEN, BLOOD 18 mg/dL (7-18)
[2025-01-07 06:20] LABS: APPEARANCE,URINE CLEAR (CLEAR); GLUCOSE, URINE (UA) NEGATIVE (NEGATIVE); LEUKOCYTE ESTERASE ,URINE NEGATIVE (NEGATIVE); NITRATE,URINE NEGATIVE (NEGATIVE); OCCULT BLOOD,URINE NEGATIVE (NEGATIVE); SPECIFIC GRAVITIY, URINE 1.014 (1.003-1.030)
[2025-01-07 07:34] VITALS: BP 153/63; PULSE 55; RESP 18; TEMP 98.1; O2SAT 98
[2025-01-07 08:04] LABS: PLATELET MORPHOLOGY COMMENT LARGE PLTS PRESENT
[2025-01-07 08:41] LABS: GLUCOMETER DEV NAME(LOC) 5S.2E; GLUCOSE,POINT OF CARE 101 MG/DL (70-110)
[2025-01-07] MEDS: CLOPIDOGREL BISULFATE 75 MG TABLET PO SCH (08:48)
[2025-01-07] MEDS: ASPIRIN 81 MG CHEWABLE TABLET PO SCH (08:48)
[2025-01-07] MEDS: ATORVASTATIN CALCIUM 40 MG TABLET PO SCH (08:48)
[2025-01-07] MEDS: PANTOPRAZOLE SODIUM 40 MG DR TABLET PO SCH (08:48)
[2025-01-07 11:58] VITALS: BP 129/90; PULSE 51; RESP 18; TEMP 98.4; O2SAT 97
[2025-01-07 20:06] VITALS: BP 132/74; PULSE 55; RESP 17; TEMP 98.2; O2SAT 99
[2025-01-07 23:46] VITALS: BP 122/72; PULSE 51; RESP 17; TEMP 97.9; O2SAT 99
[2025-01-08 03:45] VITALS: BP 147/81; PULSE 63; RESP 19; TEMP 97.5; O2SAT 100
[2025-01-08 06:39] LABS: PLATELET COUNT (AUTO) 229 K/uL (150-450); RED BLOOD CELL COUNT(AUTO) 3.94 MIL/uL (4.50-5.90); RED CELL DISTRIBUTION WIDTH 15.2 % (11.5-14.5); WHITE BLOOD COUNT (AUTO) 5.0 K/uL (4.5-11.0)
[2025-01-08 06:50] LABS: CALCIUM, TOTAL 9.1 mg/dL (8.8-10.5); CREATININE 1.19 mg/dL (0.60-1.30); GLOMERULAR FILTR. RATE CALC > 60 mL/min (>60); GLUCOSE,RANDOM 129 mg/dL (70-110); SODIUM SERUM 140 mmol/L (136-145); UREA NITROGEN, BLOOD 19 mg/dL (7-18)
[2025-01-08 07:30] VITALS: BP 146/75; PULSE 55; RESP 18; TEMP 97.9; O2SAT 100
[2025-01-08] MEDS: ISOSORBIDE MONONITRATE 30 MG ER TABLET PO SCH (08:29)
[2025-01-08] MEDS: ACETAMINOPHEN 325 MG TABLET PO PRN (08:36)
[2025-01-08 10:30] VITALS: BP 130/69; PULSE 59; RESP 19; TEMP 98.2; O2SAT 99
[2025-01-08 15:30] VITALS: BP 125/74; PULSE 60; RESP 18; TEMP 98.6; O2SAT 100
[2025-01-08] MEDS: MORPHINE SULFATE 4 MG/ML SYRINGE IVP PRN (15:31)
[2025-01-08] MEDS: OxyCODONE HCL/ACETAMINOPHEN 5-325 MG TABLET PO PRN (20:26)
[2025-01-08 21:19] VITALS: BP 129/70; PULSE 57; RESP 18; TEMP 98.1; O2SAT 99
[2025-01-09 00:32] VITALS: BP 154/79; PULSE 55; RESP 18; TEMP 97.7; O2SAT 99
[2025-01-09 04:33] VITALS: BP 126/68; PULSE 53; RESP 18; TEMP 98.1; O2SAT 97
[2025-01-09 06:21] LABS: PLATELET COUNT (AUTO) 203 K/uL (150-450); RED BLOOD CELL COUNT(AUTO) 3.77 MIL/uL (4.50-5.90); RED CELL DISTRIBUTION WIDTH 15.2 % (11.5-14.5); WHITE BLOOD COUNT (AUTO) 5.3 K/uL (4.5-11.0)
[2025-01-09 06:50] LABS: CALCIUM, TOTAL 9.0 mg/dL (8.8-10.5); CREATININE 1.06 mg/dL (0.60-1.30); GLOMERULAR FILTR. RATE CALC > 60 mL/min (>60); GLUCOSE,RANDOM 99 mg/dL (70-110); SODIUM SERUM 140 mmol/L (136-145); UREA NITROGEN, BLOOD 19 mg/dL (7-18)
[2025-01-09 08:06] VITALS: BP 158/74; PULSE 58; RESP 18; TEMP 98.4; O2SAT 100
[2025-01-09] MEDS ORDERED: HYDR25TA84 PO (11:21)
[2025-01-09 11:54] VITALS: BP 142/70; PULSE 58; RESP 18; TEMP 98.2; O2SAT 100
[2025-01-09 15:11] VITALS: BP 135/75; PULSE 62; RESP 18; TEMP 98.9; O2SAT 98
[2025-01-09 20:12] VITALS: BP 147/70; PULSE 65; RESP 18; TEMP 97.9; O2SAT 99
[2025-01-10 06:11] LABS: PLATELET COUNT (AUTO) 210 K/uL (150-450); RED BLOOD CELL COUNT(AUTO) 3.81 MIL/uL (4.50-5.90); RED CELL DISTRIBUTION WIDTH 15.2 % (11.5-14.5); WHITE BLOOD COUNT (AUTO) 5.5 K/uL (4.5-11.0)
[2025-01-10 06:20] VITALS: BP 138/85; PULSE 64; RESP 16; TEMP 98.2; O2SAT 97
[2025-01-10 06:42] LABS: CALCIUM, TOTAL 9.0 mg/dL (8.8-10.5); CREATININE 1.17 mg/dL (0.60-1.30); GLOMERULAR FILTR. RATE CALC > 60 mL/min (>60); GLUCOSE,RANDOM 96 mg/dL (70-110); SODIUM SERUM 140 mmol/L (136-145); UREA NITROGEN, BLOOD 19 mg/dL (7-18)
[2025-01-10 07:33] VITALS: BP 156/80; PULSE 56; RESP 18; TEMP 98; O2SAT 100
[2025-01-10] MEDS: TAMSULOSIN HCL 0.4 MG CAPSULE PO SCH (09:49)
[2025-01-10 10:28] LABS: APPEARANCE,URINE CLEAR (CLEAR); GLUCOSE, URINE (UA) NEGATIVE (NEGATIVE); LEUKOCYTE ESTERASE ,URINE NEGATIVE (NEGATIVE); NITRATE,URINE NEGATIVE (NEGATIVE); OCCULT BLOOD,URINE NEGATIVE (NEGATIVE); SPECIFIC GRAVITIY, URINE 1.014 (1.003-1.030)
[2025-01-10 11:15] VITALS: BP 136/83; PULSE 64; RESP 18; TEMP 98.4; O2SAT 99
[2025-01-10 15:39] VITALS: BP 139/69; PULSE 58; RESP 17; TEMP 98; O2SAT 100
[2025-01-10 20:00] VITALS: BP 137/65; PULSE 63; RESP 18; TEMP 98.4; O2SAT 98
[2025-01-10 23:39] VITALS: BP 144/67; PULSE 64; RESP 18; TEMP 97.5; O2SAT 97
[2025-01-11 03:36] VITALS: BP 134/71; PULSE 54; RESP 17; TEMP 97.7; O2SAT 97
[2025-01-11 05:58] LABS: PLATELET COUNT (AUTO) 203 K/uL (150-450); RED BLOOD CELL COUNT(AUTO) 3.81 MIL/uL (4.50-5.90); RED CELL DISTRIBUTION WIDTH 15.2 % (11.5-14.5); WHITE BLOOD COUNT (AUTO) 6.0 K/uL (4.5-11.0)
[2025-01-11 06:09] LABS: CALCIUM, TOTAL 9.2 mg/dL (8.8-10.5); CREATININE 1.07 mg/dL (0.60-1.30); GLOMERULAR FILTR. RATE CALC > 60 mL/min (>60); GLUCOSE,RANDOM 85 mg/dL (70-110); SODIUM SERUM 140 mmol/L (136-145); UREA NITROGEN, BLOOD 21 mg/dL (7-18)
[2025-01-11 07:50] VITALS: BP 151/72; PULSE 60; RESP 18; TEMP 98; O2SAT 99
[2025-01-11 09:14] LABS: PLATELET MORPHOLOGY COMMENT GIANT PLTS PRESENT
[2025-01-11] MEDS: PHENAZOPYRIDINE HCL 100 MG TABLET PO SCH (11:22)
[2025-01-11] MEDS: DUTASTERIDE 0.5 MG CAPSULE PO SCH (11:22)
[2025-01-11 11:43] VITALS: BP 122/65; PULSE 66; RESP 18; TEMP 97.5; O2SAT 100
[2025-01-11 15:49] VITALS: BP 129/66; PULSE 62; RESP 18; TEMP 97.7; O2SAT 99
== END 2025-01-11 17:00 | disposition home health service (06) | DRG 74 ==
LOC: EMS 12:55 → EDH 15:57 → 5N 19:24
PROVIDERS: ADMIT Internal Medicine; ATTEND Internal Medicine
DX: G90.89 Other disorders of autonomic nervous system (principal); E11.9 Type 2 diabetes mellitus without complications; F31.9 Bipolar disorder, unspecified; I10 Essential (primary) hypertension; I95.9 Hypotension, unspecified; E78.5 Hyperlipidemia, unspecified; Z86.73 Personal history of transient ischemic attack (TIA), and cerebral infarction without residual deficits; M54.9 Dorsalgia, unspecified
CPT/HCPCS: 71045; 72131; 72148; 80048; 80076; 81001; 81003; 82962; 83880; 84484; 85025; 93005; 96360; 96361; 97116; 97163; 97530; 99285; J0360; J1644; J2270; 36415-L1; 36415-TC